=== PATIENT | female | born 1935 | race Caucasian/White ===

== ENCOUNTER → 2017-05-10 | Outpatient (CLI) | payer MEDICARE, OTHER ==
[~2017-05-10] MED LIST: ASPI1TAB57 PO; ATOR10TA15 PO; BRIN1SUS2 RIGHT EYE; CALC1TAB87 PO; FISH500C PO; HYDR500C PO; LATA0.002 EACH EYE; MULT-65 PO; QUIN20TA3 PO; SACC1CAP3 PO
[2017-05-10 10:11] LABS: AUTOMATED NEUTROPHIL # 5.5 TH/MM3 (1.8-7.7); BASOPHIL % 0.7 % (0.0-2.0); EOSINOPHIL # 0.1 TH/MM3 (0-0.4); EOSINOPHIL % 1.9 % (0.0-4.0); HEMATOCRIT 38.5 % (35.0-46.0); HEMOGLOBIN 12.9 GM/DL (11.6-15.3); LYMPHOCYTE # 0.8 TH/MM3 (1.0-4.8); MEAN CELL VOLUME 108.8 FL (80.0-100.0); MEAN CORPUSCULAR HEMOGLOBIN 36.6 PG (27.0-34.0); MEAN CORPUSCULAR HGB CONC 33.6 % (32.0-36.0); MEAN PLATELET VOLUME 7.6 FL (7.0-11.0); MONO % 8.5 % (0.0-8.0); MONOCYTE # 0.6 TH/MM3 (0-0.9); NEUT % 77.9 % (16.0-70.0); PLATELET COUNT 565 TH/MM3 (150-450); RED BLOOD COUNT 3.53 MIL/MM3 (4.00-5.30); RED CELL DISTRIBUTION WIDTH 12.7 % (11.6-17.2); WHITE BLOOD COUNT 7.1 TH/MM3 (4.0-11.0)
[2017-05-10 10:22] LABS: BACTERIA, URINE RARE /hpf; BILIRUBIN, URINE NEG (NEG); BLOOD, URINE NEG (NEG); GLUCOSE,URINE NEG (NEG); KETONE, URINE NEG (NEG); MUCUS URINE FEW /lpf (OCC); NITRITE,URINE NEG (NEG); URINE COLOR LIGHT-YELLOW (YELLW/STRAW); URINE LEUKOCYTE ESTERASE NEG (NEG)
[2017-05-10 10:43] LABS: ALBUMIN 3.5 GM/DL (3.4-5.0); AST (GOT) 23 U/L (15-37); BLOOD UREA NITROGEN 14 MG/DL (7-18); CHLORIDE 103 MEQ/L (98-107); CREATININE 0.66 MG/DL (0.50-1.00); GLOMERULAR FILTRATION RATE 86 ML/MIN (>89); GLUCOSE,FASTING 67 MG/DL (74-99); SODIUM (NA) 138 MEQ/L (136-145); WESTERGREN SEDIMENTATION RATE 47 mm/hr (0-30)
[2017-05-10 10:44] LABS: ALT (GPT) 18 U/L (10-53)
[2017-05-10 10:47] LABS: ALKALINE PHOSPHATASE 84 U/L (45-117); TOTAL BILIRUBIN ADULT 0.3 MG/DL (0.2-1.0); TOTAL PROTEIN 7.8 GM/DL (6.4-8.2)
--- NOTE | 2017-05-10 10:51 | RADRPT ---
EXAM DATE/TIME: 05/10/2017 09:50 [facility] COMPARISON: No previous studies available for comparison. INDICATIONS : Evaluate for pneumothorax, pneumonia, or communicable disease. Pre-op right total h ip. MEDICAL HISTORY : Breast Cancer. SURGICAL HISTORY : Hysterectomy. Intestinal blockage. ENCOUNTER: Initial ACUITY: 1 day PAIN SCORE: 0/10 LOCATION: Bilateral chest FINDINGS: Lungs are hyperexpanded with diffuse interstitial prominence. No cardiomediastinal contours are withi n normal limits. Surgical clips are seen in the right axilla with absent right breast shadow. There i s S-shaped scoliosis of the thoracolumbar junction. Osseous structures are otherwise intact. CONCLUSION: 1. Changes of obstructive pulmonary disease. 2. No acute abnormality. Rom Johnson MD on May 10, 2017 at 10:48 Board Certified Radiologist. This report was verified electronically.
--- NOTE | 2017-05-10 14:05 | EKG ---
Date Performed: 05/10/2017 Time Performed: 09:10:04 PTAGE: 81 years EKG: Sinus rhythm . Anterolateral ST-T changes are nonspecific Borderline ECG NO PREVIOUS TRACING DOCTOR: Bossman Mcgarry Interpretating Date/Time 05/10/2017 14:04:46
== END ==
LOC: CPRE 08:49
PROVIDERS: ATTEND Orthopaedic Surgery
DX: Z01.812 Encounter for preprocedural laboratory examination (principal); Z01.811 Encounter for preprocedural respiratory examination; Z01.810 Encounter for preprocedural cardiovascular examination; M16.11 Unilateral primary osteoarthritis, right hip; R94.31 Abnormal electrocardiogram [ECG] [EKG]
CPT/HCPCS: 36415; 71020; 80053; 81001; 85025; 85610; 85652; 85730; 93005

== ENCOUNTER 2017-05-29 06:59 | Inpatient (IN) | payer MEDICARE, OTHER ==
[~2017-05-29] VITALS: Ht 167.6 cm; Wt 50.2 kg
[2017-05-29] MEDS ORDERED: ceFAZolin 2 GM PREMIX 50 ML IV SCH (08:00)
[2017-05-29] MEDS ORDERED: POVIDONE IODINE 7.5% SCRUB 118 ML BOTTLE TOPICAL SCH (08:00)
[2017-05-29] MEDS ORDERED: METOPROLOL TARTRATE 25 MG TAB PO PRN (08:00)
[2017-05-29] MEDS ORDERED: CHLORHEXIDINE GLUCONATE 2 % 1 PACK (2 CLOTHS) TOPICAL PRN (08:00)
[2017-05-29] MEDS ORDERED: LACTATED RINGER'S 1000 ML IV PRN (08:00)
[2017-05-29] MEDS ORDERED: VANCOMYCIN 1000 MG/NS 250 ML (for <70 kg) IV SCH ×2 (08:00)
[2017-05-29] MEDS ORDERED: POVIDONE IODINE 5% (ANTISEPSIS KIT) 4 APPLICATIONS EACH NARE PRN (08:00)
[2017-05-29] MEDS ORDERED: SODIUM CHLORID 0.9% 500 ML IV PRN (08:00)
[2017-05-29] MEDS ORDERED: QUIN20TA2 PO (08:09)
[2017-05-29] MEDS ORDERED: GENTAMICIN SULFATE 80 MG/2 ML VIAL ONE (08:35)
[2017-05-29] MEDS ORDERED: SODIUM CHLORIDE 0.9% IV SCH ×2 (09:00→12:30)
[2017-05-29] MEDS ORDERED: TRANEXAMIC ACID IV SCH ×2 (09:00→12:30)
[2017-05-29] MEDS ORDERED: EXPAREL PERI-ARTICULAR INJECTION (TOTAL VOL. 60 ML) P-ARTICULR SCH ×2 (09:00)
[2017-05-29] MEDS ORDERED: DEXAMETHASONE SOD PHOS 20 MG/5 ML VIAL IV SCH (09:00)
[2017-05-29] MEDS ORDERED: FAMOTIDINE 20 MG/2 ML VIAL ONE (09:14)
[2017-05-29] MEDS ORDERED: MIDAZOLAM HCL 2 MG/2 ML VIAL ONE (09:14)
[2017-05-29] MEDS ORDERED: ACETAMINOPHEN 1000 MG/100 ML 100 ML IV ONE (09:14)
[2017-05-29] MEDS ORDERED: APREPITANT 40 MG CAP ONE (09:30)
[2017-05-29] MEDS ORDERED: ONDANSETRON HCL 4 MG/2 ML VIAL ONE (09:30)
--- NOTE | 2017-05-29 11:35 | PD.OP ---
cc: Guilherme Hamilton MD Operative Report Date of Surgery: May 29, 2017 Preoperative Diagnosis: Right hip severe osteoarthritis Postoperative Diagnosis: Same Procedure: Right total hip arthroplasty Anesthesia: Gen. Surgeon: Guilherme Hamilton Reporting Developer(s): ABIMAEL Ramirez The surgical procedure was assisted by my Advanced Registered Nurse Practitioner. My CARD TENDER presence was necessary throughout this case for the manipulation and positioning of the surgical extremity. My CARD TENDER was assisting me throughout the duration of this procedure. The skill set of an Advance Registered Nurse Practitioner was medically necessary to complete this procedure. During the surgical case, the operating room surgical technician was working at the back table and the Advance Registered Nurse Practitioner was directly assisting me. Operation and Findings: IMPLANT DESCRIPTION: 1. [place] Gription Cup, acetabular size 50. 2. [place] AltrX polyethylene, neutral. 4. [place] femoral stem size 10, no collar, standard offset. 5. Femoral head/neck metal, 32, +5. ESTIMATED BLOOD LOSS: 200 cc. JUSTIFICATION FOR PROCEDURE: The patient has end-stage osteoarthritis to the hip. There is an attached conservative measures pathway form in the chart that describes the nonoperative measures that were undertaken prior to consideration of surgical management. The patient understood the risks and benefits of surgical management. See my office notes for further details. PROCEDURE: The patient was brought back to the operative theatre. Adequate anesthesia was obtained. The patient received intravenous vancomycin and Ancef. The patient was carefully placed on the operative table. The lower extremity was prepped and draped in the usual sterile fashion. Fluoroscopic images were obtained. We made a standard anterior incision over the hip. We dissected through the TFL fascia, exposing the anterior capsule. Arthrotomy was performed in a T-shaped fashion. The capsule was tagged with a #2 FiberWire. End-stage arthritis was identified. Osteotomy was performed through the femoral neck exposing the acetabulum. Remnants of the labrum were resected and osteophytes were removed. We sequentially reamed the acetabulum. We trialed the hip and placed the final cup into position. This was done under fluoroscopic guidance to obtain the appropriate inclination and anteversion. A manhole cover was placed into the acetabular component. We then placed the final polyethylene into position and confirmed that it was well seated. Capsular attachments on the calcar and the inner aspect of the greater trochanter were resected. On the proximal aspect of the femur we used a rongeur , box osteotome, canal finder, sequential broaches and lateralizing rasp. We calcar planed the proximal femur. Then thoroughly irrigated the wound. We trialed the hip with the appropriate size stem. We placed the final stem in to position and trialed again. The hip was stable while it was externally rotated 70 degrees when the leg was lowered to the floor. The final head was applied, and final fluoroscopic images were obtained. The wound was thoroughly irrigated again. Interarticular injection of liposomal bupivacaine was given. The capsule was closed with #2 FiberWire and #1 Vicryl. The deep fascia was closed with a #2 Stratafix, followed by 2-0 Vicryl in the skin and Dermabond dressing. Postop plan is to weight-bear as tolerated. DVT prophylaxis will be performed with Fede, KATE mansfield, early mobilization, and Lovenox followed by aspirin. Guilherme Hamilton MD May 29, 2017 11:35
[2017-05-29] MEDS ORDERED: ZOLPIDEM TARTRATE 5 MG TAB PO PRN (11:45)
[2017-05-29] MEDS ORDERED: Post-op Orders (for Pharmacy) XX ONE (11:45)
[2017-05-29] MEDS ORDERED: MAGNESIUM HYDROXIDE SUSP 30 ML CUP PO PRN (11:45)
[2017-05-29] MEDS ORDERED: ONDANSETRON HCL 4 MG/2 ML VIAL IVP PRN (11:45)
[2017-05-29] MEDS ORDERED: MORPHINE SULFATE 2 MG/ML INJ IV PUSH PRN (11:45)
[2017-05-29] MEDS ORDERED: BISACODYL 10 MG SUPP RECTAL PRN (11:45)
[2017-05-29] MEDS ORDERED: diphenhydrAMINE HCL 50 MG/ML VIAL IV PUSH PRN (11:45)
[2017-05-29] MEDS ORDERED: ACETAMINOPHEN/HYDROcodone 325 MG/5 MG TAB PO PRN (11:45)
[2017-05-29] MEDS ORDERED: NALOXONE HCL 0.4 MG/ML AMP IV PUSH PRN (11:45)
[2017-05-29] MEDS ORDERED: ALUMINUM/MAGNESIUM/SIMETH 30 ML CUP PO PRN (11:45)
--- NOTE | 2017-05-29 11:55 | HHI.DCPOC ---
Discharge Care Plan Diagnosis: (1) Osteoarthritis of right hip (2) Status post total hip replacement, right Your Health Problems Are: Difficulty with ADL Goals to Promote Your Health * To prevent worsening of your condition and complications * To maintain your health at the optimal level Directions to Meet Your Goals Take your medications as prescribed Follow your dietary instruction Follow activity as directed Keep your appointments as scheduled Take your immunizations and boosters as scheduled If your symptoms worsen call your PCP, if no PCP go to Urgent Care Center or Emergency Room Smoking is Dangerous to Your Health. Avoid second hand smoke Call the 24-hour hour crisis hotline for domestic abuse at Laz Morton May 29, 2017 11:55
--- NOTE | 2017-05-29 11:56 | HHI.FF ---
Face to Face Verification Diagnosis: (1) Osteoarthritis of right hip (2) Status post total hip replacement, right Physical Therapy Gait training, Transfer training, bed to chair Hip: Total hip Right LE Weight Bearing: WB as tolerated Right LE Range of Motion: Active ROM Nursing Nursing: Ashutosh del castillo Dressing Changes: Do not change dressing Additional Instructions first dressing change in office I have seen patient Lisa Sifuentes on 05/29/17. My clinical findings support the need for the requested home health care services because: Limited ability to care for self High risk of falls I certify that my clinical findings support that this patient is homebound because: Post-op weakness Unsteady gait/balance Laz Morton May 29, 2017 11:56
[2017-05-29] MEDS ORDERED: WALKER WHEELS/F1 MIS (11:57)
[2017-05-29] MEDS ORDERED: COMMODE 3-IN-11 MIS (11:57)
[2017-05-29] MEDS ORDERED: DO NOT ADM ANY ANTICOAGULANT DRUGS PRN (12:00)
[2017-05-29] MEDS ORDERED: NEOSTIGMINE 5 MG/5 ML SYRINGE IV PUSH ONE (12:00)
[2017-05-29] MEDS ORDERED: PROPOFOL 200 MG/20 ML AMP IV ONE (12:00)
[2017-05-29] MEDS ORDERED: GLYCOPYRROLATE 1 MG/5 ML SYRINGE IV PUSH ONE (12:00)
[2017-05-29] MEDS ORDERED: ePHEDrine/NS 25 MG/5 ML SYRINGE IV ONE (12:00)
[2017-05-29] MEDS ORDERED: ROCURONIUM INJ 50 MG/5 ML SYRINGE IV PUSH ONE (12:00)
[2017-05-29] MEDS ORDERED: LIDOCAINE HCL 1% PF 5 ML SYRINGE OTHER ONE (12:00)
[2017-05-29] MEDS ORDERED: LACTATED RINGER'S 1000 ML INJ 1,000 ML IV ONE (12:00)
[2017-05-29] MEDS ORDERED: PHENYLEPH/NS 1000 MCG/10 ML SYR IV ONE (12:00)
[2017-05-29] MEDS: SODIUM CHLOR 0.9% 1000 ML INJ 1,000 ML IV SCH ×2 (13:00→21:32)
[2017-05-29] MEDS ORDERED: *HYDROmorphone PF 1 MG VIAL PERIprocedural Use ONLY ONE (13:04)
--- NOTE | 2017-05-29 13:06 | RADRPT ---
EXAM DATE/TIME: 05/29/2017 12:28 [facility] COMPARISON: No previous studies available for comparison. INDICATIONS : Post op right total hip. MEDICAL HISTORY : Unobtainable. SURGICAL HISTORY : Unobtainable. ENCOUNTER: Subsequent ACUITY: 1 day PAIN SCORE: Non-responsive. LOCATION: Right hip. FINDINGS: Examination of the right hip was performed with AP Pelvis. The patient had a right hip arthroplasty i n good position. I don't see any evidence of fracture. This extensive air in the subcutaneous tissues . The acetabulum is grossly intact. CONCLUSION: Status post right total arthroplasty. No acute fractures seen Bob Guerra MD on May 29, 2017 at 13:02 Board Certified Radiologist. This report was verified electronically.
[2017-05-29] MEDS ORDERED: HYDROmorphone HCL PF 2 MG/ML VIAL IV PRN (14:00)
[2017-05-29] MEDS ORDERED: BRINZOLAMIDE BRIMONIDINE OPTH RIGHT EYE SCH (14:00)
[2017-05-29 16:00] VITALS: BP_SYST 151; PULSE 58; RESP 16; TEMP 96.6; O2SAT 96
[2017-05-29 19:55] VITALS: BP 121/57; PULSE 70; RESP 18; TEMP 96.7; O2SAT 97
[2017-05-29] MEDS ORDERED: ATORVASTATIN 10 MG TAB PO SCH (21:00)
[2017-05-29] MEDS ORDERED: LATANOPROST 0.005% OPHT SOLN 2.5 ML BTL EACH EYE SCH (21:00)
--- NOTE | 2017-05-29 21:14 | RADRPT ---
EXAM DATE/TIME: 05/29/2017 10:23 [facility] COMPARISON: No previous studies available for comparison. INDICATIONS : Right anterior hip replacement done in operating room. MEDICAL HISTORY : None. SURGICAL HISTORY : None. ENCOUNTER: Initial ACUITY: 1 day PAIN SCORE: Non-responsive. LOCATION: Right hip. FINDINGS: 3 magnified C-arm spot images are centered over the hip and labeled right. There is a total hip prost hesis in good position. No gross fracture. CONCLUSION: Limited images as detailed above. Garret Macario Jr., MD on May 29, 2017 at 21:11 Board Certified Radiologist. This report was verified electronically.
[2017-05-29 23:48] VITALS: BP 105/53; PULSE 69; RESP 17; TEMP 96.7; O2SAT 98
[2017-05-30] MEDS: ACETAMINOPHEN/HYDROcodone 325 MG/5 MG TAB PO PRN ×3 (04:33→12:10)
[2017-05-30 04:38] VITALS: BP 115/56; PULSE 70; RESP 18; TEMP 96.7; O2SAT 97
[2017-05-30 05:50] LABS: HEMATOCRIT 30.4 % (35.0-46.0); HEMOGLOBIN 10.4 GM/DL (11.6-15.3); MEAN CELL VOLUME 108.2 FL (80.0-100.0); MEAN CORPUSCULAR HGB CONC 34.2 % (32.0-36.0); MEAN PLATELET VOLUME 7.7 FL (7.0-11.0); PLATELET COUNT 440 TH/MM3 (150-450); RED BLOOD COUNT 2.81 MIL/MM3 (4.00-5.30); RED CELL DISTRIBUTION WIDTH 12.5 % (11.6-17.2); WHITE BLOOD COUNT 11.1 TH/MM3 (4.0-11.0)
[2017-05-30] MEDS: SODIUM CHLOR 0.9% 1000 ML INJ 1,000 ML IV SCH (07:32)
[2017-05-30] MEDS ORDERED: DEXAMETHASONE SOD PHOS 20 MG/5 ML VIAL IV ONE (07:45)
[2017-05-30 08:00] VITALS: BP 112/56; PULSE 61; RESP 18; TEMP 97; O2SAT 97
[2017-05-30] MEDS ORDERED: QUINAPRIL HYDROCHLOROTHIAZIDE PO SCH (09:00)
[2017-05-30] MEDS ORDERED: HYDROCHLOROTHIAZIDE 25 MG TAB PO SCH (09:00)
[2017-05-30] MEDS ORDERED: LISINOPRIL 20 MG TAB PO SCH (09:00)
[2017-05-30] MEDS ORDERED: HYDROXYUREA 500 MG CAP PO SCH (09:00)
[2017-05-30] MEDS ORDERED: ENOXAPARIN SODIUM 40 MG/0.4 ML SYRINGE SQ SCH (11:00)
[2017-05-30 12:00] VITALS: BP 107/58; PULSE 63; RESP 18; TEMP 96.4; O2SAT 97
--- NOTE | 2017-05-30 12:28 | PD.ORT.PN ---
Subjective Post Op Day #: 1 Subjective Remarks The patient is OOB in chair, dressed, and ready for her class today. Patient reports minimal pain and only having to take one pain pill since surgery. Patient requesting to go home with home health today. Objective Vitals Vital Signs Date Time Temp Pulse Resp B/P (MAP) Pulse Ox O2 Delivery O2 Flow Rate FiO2 05/30/17 08:36 Room Air 05/30/17 08:00 97.0 61 18 112/56 (74) 97 05/30/17 05:13 16 05/30/17 04:38 96.7 70 18 115/56 (75) 97 05/29/17 23:53 Room Air 05/29/17 23:48 96.7 69 17 105/53 (70) 98 05/29/17 19:55 96.7 70 18 121/57 (78) 97 05/29/17 16:00 97.6 65 16 120/62 (81) 96 Room Air 05/29/17 16:00 96.6 58 16 151/ 96 05/29/17 15:00 65 16 124/61 (82) 96 Room Air 05/29/17 14:00 64 16 121/63 (82) 99 Nasal Cannula 2 05/29/17 13:34 15 05/29/17 13:30 63 15 126/60 (82) 97 Nasal Cannula 2 05/29/17 13:00 97.5 62 15 131/65 (87) 95 Nasal Cannula 2 05/29/17 12:45 60 15 135/67 (89) 95 Nasal Cannula 2 05/29/17 12:30 62 15 134/63 (86) 100 Nasal Cannula 3 I/O 05/29/17 05/29/17 05/29/17 05/30/17 05/30/17 05/30/17 07:00 15:00 23:00 07:00 15:00 23:00 Intake Total 1225.02 ml 760 ml 460 ml Output Total 200 ml Balance 1025.02 ml 760 ml 460 ml Intake Oral 120 ml 360 ml 360 ml IV Total 1105.02 ml 400 ml 100 ml Output Estimated Blood Loss 200 ml # Voids 1 1 # Bowel Movements 0 0 Result Diagram: 05/30/17 0516 Procedures Right LISY Objective Remarks Dressing is C/D/I. EHL/TA/G intact. 2+ pedal pulse. Calf is soft and nontender. + SILT. Assessment & Plan Ortho Post Op Day #: 1 Problem List: Assessment and Plan POD #1: Right LISY 1. WBAT RLE 2. Lovenox followed by ASA for DVT prophylaxis 3. Ice to the right hip PRN 4. Stable for discharge home with home health today 5. F/U in the office with Dr. Hamilton or ABIMAEL Medina as previously scheduled. Laz Morton May 30, 2017 12:28
[2017-05-30] MEDS ORDERED: DOCUSATE SODIUM 100 MG CAP PO SCH (21:00)
[2017-05-30] MEDS ORDERED: MULTIVITAMINS/MINERALS THERAPEUTIC TAB PO SCH (21:00)
--- NOTE | 2017-06-02 22:06 | HHI.DS ---
Discharge Summary Admission Date May 29, 2017 at 06:59 Discharge Date: May 30, 2017 Admitting Diagnosis OA of the right hip Status post total hip replacement, right Diagnosis: (1) Osteoarthritis of right hip Diagnosis: Principal ICD Codes: M16.11 - Unilateral primary osteoarthritis, right hip (2) Status post total hip replacement, right Diagnosis: Principal ICD Codes: Z96.641 - Presence of right artificial hip joint Procedures Right LISY Brief History This is a 81 year old female patient with severe OA of the right hip. CBC/BMP: 05/30/17 0516 PE at Discharge Dressing is C/D/I. EHL/TA/G intact. 2+ pedal pulse. Calf is soft and nontender. + SILT. Hospital Course The patient was admitted to the hospital for severe OA of the right hip to have a LISY. The patient's surgery went well with no complication. The patient is WBAT. The patient is on a regular diet. The patient was placed on Lovenox followed by ASA for DVT prophylaxis. The patient was discharged home with home health. The patient will f/u with Dr. Hamilton or ABIMAEL Medina as previously scheduled. Pt Condition on Discharge: Stable Discharge Disposition: Disch w/ Home Health Serv Discharge Instructions Diet Instructions: As Tolerated, No Restrictions Activities You Can Perform: Weight Bearing as Jovany Activities to Avoid: Strenuous Activity Follow up Referrals: Appointment for Follow Up Orthopedics with Guilherme Hamilton MD New Medications: Commode 3-in-1 (Commode 3-in-1) 1 Mis Mis EA .ROUTE DIRECTED, #1 0 Refills Walker with Front Wheels (Walker with Front Wheels) 1 Mis Mis EA .ROUTE DIRECTED, #1 0 Refills Continued Medications: Atorvastatin (Atorvastatin) 10 Mg Tab 10 MG PO HS for Cholesterol Management, #30 TAB 0 Refills Brinzolamide-Brimonidine Opth Drops (Simbrinza Opth Drops) 1-0.2% Susp 1 DROP RIGHT EYE Q8HR for Intraocular Pressure, #1 BOTTLE 0 Refills Calcium Carbonate-Cholecalciferol (Calcium 600 with Vitamin D) 600-400 mg-Unit Tab 2 TAB PO DAILY for Calcium Supplement, TAB 0 Refills Hydroxyurea (Hydrea) 500 Mg Cap 500 MG PO DAILY, CAP 0 Refills Latanoprost Opth Drops (Latanoprost Opth Drops) 0.005% Drops 1 DROP EACH EYE HS for Glaucoma, #2.5 ML 0 Refills Refrigerate until opened. Multiple Vitamin (Multi-Vitamin Daily) 1 Tab Tab 1 TAB PO DAILY for Nutritional Supplement, TAB 0 Refills Quinapril-Hydrochlorothiazide (Quinapril-Hydrochlorothiazide) 20-12.5 Mg Tab 1 TAB PO DAILY for Blood Pressure Management, #30 TAB 0 Refills Saccharomyces Boulardii (Probiotic) 250 Mg Cap 250 MG PO DAILY for Nutritional Supplement, CAP 0 Refills Discontinued Medications: Aspirin DR (Aspirin 81) 81 Mg Tabdr 81 MG PO DAILY, TAB 0 Refills [place]-3 Fatty Acids (Fish Oil) 60 Mg-90 Mg-500 Mg Cap 1 CAP PO DAILY Laz Morton Jun 02, 2017 22:06
== END 2017-05-30 14:46 | disposition home health service (06) | DRG 470 ==
LOC: HSDI 06:59 → N06B 16:20
PROVIDERS: ADMIT Orthopaedic Surgery; ATTEND Orthopaedic Surgery
PROC: 0SR902A Replacement of Right Hip Joint with Metal on Polyethylene Synthetic Substitute, Uncemented, Open Approach (ICD-10-PCS; principal; 2017-05-29 09:45)
DX: M16.11 Unilateral primary osteoarthritis, right hip (principal)
CPT/HCPCS: 73502; 76000; 85027; 85652; 86850; 86900; 86901; C1776; C9290; J0131; J0690; J1100; J1170; J1580; J1650; J2250; J2370; J2405; J2710; J3010; J3370; J7030; J7050; J7120; J8501